=== PATIENT | female | born 1985 | race Caucasian/White ===

== ENCOUNTER 2025-05-08 13:56 | Emergency (ER) | payer OTHER, SELFPAY ==
[2025-05-08 13:59] VITALS: BP 112/76
[2025-05-08 14:33] LABS: % Basophils 0.5 % (0-2); % Eosinophils 0.6 % (0-6); % Immature Granulocytes 0.2 % (0-0.5); % Neutrophils 64.7 % (42.2-75.2); Absolute Basophils 0.1 10^3/uL (0-0.2); Absolute Eosinophils 0.1 10^3/uL (0-0.7); Absolute Lymphocytes 2.3 10^3/uL (1.2-3.4); Absolute Monocytes 0.8 10^3/uL (0.1-0.6); Hematocrit 37.8 % (37.0-47.0); Hemoglobin 13.2 g/dL (12.0-16.0); Mean Corp Hgb Conc. 34.9 g/dL (33.0-37.0); Mean Corpuscular Hgb 31.5 pg (27.0-31.0); Mean Corpuscular Volume 90.2 fL (81.0-99.0); Mean Platelet Volume 9.9 fL (7.4-10.4); Nucleated Red Blood Cells % 0 %; Platelet Count 264 10^3/uL (130-400); Red Blood Cell Count 4.19 10^6/uL (4.20-5.40); Red Cell Dist. Width 12.5 % (11.5-14.5); White Blood Cell Count 9.4 10^3/uL (4.8-10.8)
[2025-05-08 14:38] LABS: Urine Albumin 2+ (Neg - Trace); Urine Bilirubin Negative (Negative); Urine Character Clear (Clear); Urine Color Yellow; Urine Glucose Negative (Negative); Urine Ketone Negative (Negative); Urine Leukocyte 1+ (Negative); Urine Nitrite Negative (Negative); Urine Occult Blood Negative (Negative); Urine Urobilinogen 1+ (Neg - 1+)
[2025-05-08 14:46] LABS: HCG, Serum Qualitative Screen Negative
--- NOTE | 2025-05-08 14:52 | ED.GENMED ---
History of Present Illness
General
Chief Complaint: Abdominal Pain
Time Seen by Provider: 05/08/25 14:51
History of Present Illness
History of Present Illness:
REVIEW OF OLD RECORDS
- I reviewed records, the patient has a history of an ectopic in [address] Cancino treated with methotrexate.
Initial evaluation at 2:55 PM
CHIEF COMPLAINT(S)
Pain between shoulder blades, vomiting, bloating.
HISTORY OF PRESENT ILLNESS
The patient is a 40-year-old female who presented with pain between her shoulder blades that began yesterday. The pain started while she was out to dinner and progressed throughout the night. She described the pain as non-muscular and could not
easily characterize it. This was followed by vomiting and feeling bloated, with persistent pain that has not improved. She experienced the pain in her back, and it was unaffected by movement such as leaning forward. The pain does not significantly
worsen upon palpation, although she could feel it in her back upon deep palpation of the abdomen. She also noted tenderness on both sides of the abdomen. The patient reported having diarrhea twice yesterday morning. She indicated that the pain first
started in her back and interferes with her sleep, as lying on her side exacerbates the discomfort.
EXTERNAL RECORDS REVIEWED
The patients previous records indicate a past ectopic surgery, which was performed in [place]. The patient was given methotrexate, relevant to her ectopic .
[employer]ING HE[employer]
Lives at home
PAST SURGICAL HISTORY
History of ectopic surgery.
REVIEW OF SYSTEMS
- Gastrointestinal: Vomiting, bloating, diarrhea.
- Musculoskeletal: Pain between shoulder blades, described as non-muscular.
- General: Discomfort interfering with sleep.
PHYSICAL EXAM
- Musculoskeletal: No tenderness to palpation in the upper back between shoulder blades; abdominal palpation resulted in sensation in the back.
- Gastrointestinal: Mild bilateral upper abdominal tenderness with no peritoneal signs
- General: Well appearing in no distress
- HEENT: Moist oral mucosa
- Cardiovascular: No murmurs, normal heart rate, regular rhythm, No chest wall tenderness
- Pulmonary: No respiratory distress, breath sounds are clear and equal
- Neurologic: Excellent strength all extremities, no coordination deficits
- Psychiatric: Appropriate mental status, normal insight and judgement
- Extremities: Nontender, no edema, moves all extremities equally
- Skin: No rash, no lesions
- Back: There is no significant palpation in the intrascapular region, no midline tenderness
PROBLEM LIST
Acute:
- Pain between shoulder blades
- Vomiting
- Bloating
- Diarrhea
PLAN
- A CT scan is planned to investigate the cause of upper abdominal and back pain, as well as to include a chest view if necessary.
- Administer nausea medication and Pepsid for stomach acid control.
- Ensure patient hydration.
DIFFERENTIAL DIAGNOSIS
The Differential Diagnosis includes, in no particular order and is not limited to:
1. Gallbladder disease (e.g., cholecystitis)
2. Gastroenteritis
3. Pancreatitis
4. Peptic ulcer disease
5. Viral gastroenteritis
6. Gastritis
7. Esophagitis
8. Costochondritis
9. Cardiac-related pain
10. Gastroesophageal reflux disease (GERD)
RADIOLOGY
- Ultrasound imaging is unremarkable
EKG
- Sinus 81, PVCs, no acute ST abnormality
LABS
- White count normal at 9.4, hemoglobin normal, hCG negative, 1+ leukocyte esterase on urinalysis, elevated T. bili and transaminases and alk phos
UPDATE
-
CARE-UPDATE
05/08/25 - 15:05
Patients liver function tests show abnormalities with elevated bilirubin levels in the twos and transaminase levels in the hundreds. These findings suggest a potential gallbladder issue. Plan to proceed with an abdominal ultrasound to evaluate the
gallbladder further, as it is a preferred method over a CT scan to avoid radiation exposure at this time. If the ultrasound results are normal, reconsideration for a CT scan might be necessary.
05/08/25 - 16:23
Ultrasound results are normal. Proceeding with CT scan as planned. Patient received nausea medication, Pepcid, and fluids; reports feeling the same, possibly due to recent administration of medication. Ready for CT scan.
05/08/25 - 19:59
The patient underwent a CT scan and ultrasound, neither of which identified any alarming or concerning findings related to the gallbladder or adjacent structures, despite experiencing pain between the shoulder blades. A simple cyst measuring 2 cm
was noted on the left ovary but is considered unrelated to the current symptoms. Increased stool in the intestines was observed, and the patient reported recent diarrhea.
The patient reports feeling slightly better. Current liver enzyme levels are elevated, with total bilirubin at 2.6, and AST, ALT, and lipase mildly elevated, but not to levels suggestive of pancreatitis. The possibility of a resolved common bile
duct stone was discussed due to fluctuating liver enzyme levels.
The patient is advised to follow up with a GI specialist and continue monitoring liver enzyme levels through their primary care provider, as these changes could resolve spontaneously. There is no significant history of alcohol use contributing to
current symptoms. Discharge is considered but conditional upon the patients willingness and assurance on symptoms not worsening, with an open invitation to return if necessary. A referral to a GI specialist will be facilitated, with emphasis on
their awareness of current liver enzyme abnormalities.
Past History
Past History
ED Past Medical History: Other (ectopic )
ED Past Surgical History: Gynecological (laproscopic evacuation of ectopic ), Tonsilectomy and Other (wisdom teeth, vein ablation)
Social History
Tobacco: Non-smoker
Alcohol: Occasional
Drug: None
Personal:
Living: with family
Employment: Employed
Phy Exam
Physical Exam
Physical Exam:
See HPI
Course
Orders/Labs/Results
Orders:
Orders
05/08/25 14:01
ECG [Electrocardiogram (*1)] Urgent
Reason for Study: Abdominal Pain
05/08/25 14:02
EKG- Treatment ONCE
Test Result ONCE
05/08/25 14:22
Complete Blood Count/With Diff Urgent
Comprehensive Metabolic Panel Urgent
HCG, Serum Qualitative Screen Urgent
Lipase Urgent
Urinalysis Reflex To Culture Urgent
Date Specimen was Collected: 05/08/25
Time Specimen was Collected: 14:01
Urine Microscopic Reflex Cult Urgent
Urine Culture Urgent
PELON Source: U
Specimen Description:
Date Specimen was Collected: 05/08/25
Time Specimen was Collected: 14:01
05/08/25 15:02
US Abdomen Complete/Upper Urgent
Comment:
Reason For Exam: interscapular pain, abnormal LFTs
05/08/25 15:13
Famotidine [Pepcid] 20 mg IV NOW STA
Ondansetron Injectable [Zofran] 4 mg IV NOW STA
05/08/25 16:14
CT Chest/abd/pel W Iv Cont Urgent
Comment:
Reason For Exam: severe interscap pain; upper abd pain; abnl LFT
Abnormal Lab Results
05/08/25
14:22
RBC 4.19 L 10^6/uL
(4.20-5.40)
MCH 31.5 H pg
(27.0-31.0)
Absolute Monos (auto) 0.8 H 10^3/uL
(0.1-0.6)
Total Bilirubin 2.6 H mg/dl
(0.2-1.3)
AST 320 H U/L
(14-36)
ALT 124 H U/L
(0-35)
Alkaline Phosphatase 143 H U/L
(38-126)
Lipase 426 H U/L
(23-300)
Leukocyte Esterase Rfl 1+ A
(Negative)
Urine Albumin (Reflex) 2+ A
(Neg - Trace)
05/08/25 14:22
05/08/25 14:22
Vital Signs
Initial and Last Documented VS:
Initial Vital Signs
Temp Pulse Resp BP Pulse Ox
36.8 C 80 20 112/76 98
05/08/25 13:59 05/08/25 13:59 05/08/25 13:59 05/08/25 13:59 05/08/25 13:59
Last Documented Vital Signs
Temp Pulse Resp BP Pulse Ox
36.8 C 74 18 108/66 98
05/08/25 13:59 05/08/25 18:07 05/08/25 18:07 05/08/25 18:07 05/08/25 18:07
*Pulse Oximetry
Patient hypoxic: no (98% on room air-normal)
*Critical Care Note
Total Time (30-74mins, 75-104mins- exclusive of procedures): Not Applicable
ED Attending Note
-
Portions of this chart may have been created with voice recognition software.� Occasional wrong word or��sound alike� substitutions may have occurred due to the inherent limitations of voice recognition software.
Discharge Plan
Departure
Patient Disposition: Home (Routine Discharge)
Date of Disposition: 05/08/25
Time of Disposition: 19:59
Patient with high blood pressure during this ER visit?: No
Discharge Problem:
Abnormal LFTs
Instructions: Abdominal Pain
Referrals:
Floridalma Rivera CRNP [Family Provider, Family Practice]
Aren Mike MD [Active, Gastroenterology]
Activity Restrictions/Additional Instructions:
Although your LFTs were abnormal (AST 320, ALT 124, and total bili 2.6 and your lipase was slightly high at 426), there was no clear abnormal finding on ultrasound and CT imaging. The ultrasound of the abdomen showed normal liver, normal
gallbladder, normal pancreas. We ended up doing the CAT scan through your chest which showed no abnormality in the chest and the only finding in the abdomen and pelvis was a small simple left ovarian cyst but I do not think this is contributing to
your pain. I did send a message to the GI office for them to try to get you in as a patient soon. At least follow-up with your primary care doctor.
Interventions
Interventions:
*Risk Screen - Suicide Last Done: 05/08/25 14:47
*General Assessment Last Done: 05/08/25 13:59
*Neglect/Abuse Screening Last Done: 05/08/25 14:47
CZ-[id number]-[id number] Assessment Last Done: 05/08/25 14:47
Discharge Date and Time
Print Language: TURKISH
[2025-05-08 14:57] LABS: ALT (SGPT) 124 U/L (0-35); AST (SGOT) 320 U/L (14-36); Albumin 4.6 g/dl (3.5-5.0); Alkaline Phosphatase 143 U/L (38-126); Blood Urea Nitrogen 13 mg/dl (7-17); Calcium 9.2 mg/dl (8.4-10.2); Carbon Dioxide 23 mmol/L (22-30); Chloride 107 mmol/L (98-107); Glucose 92 mg/dl (70-99); Potassium 3.9 mmol/L (3.5-5.1); Sodium 138 mmol/L (135-145); Total Bilirubin 2.6 mg/dl (0.2-1.3); Total Protein 7.4 g/dl (6.3-8.2); eGFR > 60.00
[2025-05-08 15:08] LABS: Lipase 426 U/L (23-300)
[2025-05-08 15:25] LABS: Urine Amorphous Seen; Urine Squamous Cell >30 /LPF (Few)
[2025-05-08 15:26] LABS: Urine Granular Cast 0-2 /LPF (0); Urine Red Blood Cell 0-2 /HPF (0-2); Urine White Cell 0-2 /HPF (0-5)
[2025-05-08] MEDS: PEPCID 20 MG IV (15:35)
[2025-05-08] MEDS: ZOFRAN 4 MG IV (15:35)
[2025-05-08 16:23] VITALS: BP 117/78
[2025-05-08 18:07] VITALS: BP 108/66
[2025-05-08 20:05] VITALS: BP 110/68
[2025-05-08 23:52] LABS: Hepatitis B Surface Antigen Negative (Negative)
[2025-05-09 00:09] LABS: Hepatitis A Antibody, Total Positive (Negative); Hepatitis C Antibody Negative (Negative)
[2025-05-09 01:11] LABS: Hepatitis B Surface Antibody Indeterminate
== END 2025-05-08 20:39 | disposition home or self-care (01) ==
LOC: EMR 13:56
PROVIDERS: EMERGENCY PHYSICIAN Emergency Medicine; FAMILY PHYSICIAN Nurse Practitioner
DX: R10.9 Unspecified abdominal pain (principal); R79.89 Other specified abnormal findings of blood chemistry; N83.202 Unspecified ovarian cyst, left side
CPT/HCPCS: 99284; 96374; 96375; 71260; 74177; 76700; 80053; 81003; 81015; 83690; 84703; 85025; 86706; 86708; 86803; 87086; 87340; 93005; Q9967

== ENCOUNTER 2025-06-27 06:21 | Day surgery (SDC) | payer OTHER, SELFPAY | END 2025-06-27 10:35 | disposition home or self-care (01) | LOC: GI 06:21 | PROVIDERS: ATTENDING PHYSICIAN Internal Medicine | DX: R10.13 Epigastric pain (principal); R11.0 Nausea; K31.89 Other diseases of stomach and duodenum | CPT/HCPCS: 43239; 88305; 88342 ==